=== PATIENT | male | born 1995 | race Caucasian/White ===

== ENCOUNTER → 2018-08-03 08:25 | Outpatient (CLI) | payer BC, SELFPAY ==
--- NOTE | 2018-08-03 08:28 | US_ITS ---
US scrotum HISTORY: ITS.REASON: Left testicular pain ORDERING PHYSICIAN: JASMINA Mullins PATIENT AGE: 23 years Comparison: None FINDINGS: RIGHT TESTICLE: The right testicle has an unremarkable appearance measuring 4 x 2 x 3 cm. No testicular mass, hydrocele, spermatocele, or varicocele evident. Blood flow is noted to the right testicle. LEFT TESTICLE: The left testicle has an unremarkable appearance measuring4.6 x 2 x 2.6 cm. No mass, hydrocele, spermatocele, or varicocele evident. Blood flow is noted to the left testicle. IMPRESSION: Normal scrotal ultrasound.
== END ==
LOC: RAD 08:27
PROVIDERS: PCP Physician Assistant; Visit Provider Physician Assistant
DX: K40.90 Unilateral inguinal hernia, without obstruction or gangrene, not specified as recurrent (principal); N50.819 Testicular pain, unspecified
CPT/HCPCS: 76870

== ENCOUNTER 2018-08-08 13:23 | Outpatient (CLI) | payer BC, SELFPAY ==
[2018-08-08 13:45] VITALS: BP 158/106; PULSE 67; RESP 20; TEMP 36.9; O2SAT 98
== END 2018-08-08 14:00 | disposition home or self-care (01) ==
LOC: INF 13:25
PROVIDERS: PCP Physician Assistant; Visit Provider Surgery
DX: N45.1 Epididymitis (principal)
CPT/HCPCS: 96372

== ENCOUNTER 2020-05-23 12:50 | Emergency (ER) | payer BC, SELFPAY ==
[2020-05-23 12:59] VITALS: BP 152/86; PULSE 93; RESP 18; TEMP 36.8; O2SAT 99; BMI 30.5
--- NOTE | 2020-05-23 13:18 | HMH.EDUTC ---
[facility] [place] Clinical Impression: Viral syndrome Pharyngitis Qualifiers: Pharyngitis/tonsillitis etiology: unspecified etiology Qualified Code(s): J02.9 - Acute pharyngitis, unspecified Disposition: Home, Self-Care Condition on Discharge: Good Instructions: Sore Throat, DI for Pharyngitis/Tonsillopharyngitis -- Adult Additional Instructions: Drink plenty of fluids. Take tylenol or ibuprofen for pain or fever. Take the medications as directed. Follow up with your regular doctor. GO TO THE ER FOR ANY WORSENING SYMPTOMS Prescriptions: Brompheniramine/Pseudoephed/Dm [Bromfed Dm Cough Syrup] 5 ml PO Q6HP PRN #240 syrup PRN Reason: Cough [facility] Ondansetron [Zofran 4mg ODT] 4 mg PO Q8HP PRN #20 tab.rapdis PRN Reason: Nausea Transmission Status: Received by [id number] Azithromycin [Z-Quinten 250mg Tab*] 250 mg PO UD DOSE PK #6 tab Transmission Status: [facility] Referrals: Dontae Patel MD [Primary Care Provider] - Forms: Work/School Release Time of Disposition: 13:21 Medical Decision Making - Medical Records Medical records reviewed: No: I reviewed the patient's medical records. - Laci Inquiry Pt receiving controlled substance: No Vital Signs: 05/23/20 12:59 05/23/20 13:38 Temperature 98.2 F 98.2 F Temperature Source Oral Oral Pulse Rate 93 H Pulse Rate [Radial] 93 H Respiratory Rate 18 18 Blood Pressure 152/86 H Blood Pressure [Right Arm] 152/86 H Blood Pressure Mean [Right Arm] 108 Blood Pressure Source Automatic Cuff Blood Pressure Source [Right Arm] Automatic Cuff Blood Pressure Position Sitting Blood Pressure Position [Right Arm] Sitting 02 Sat by Pulse Oximetry 99 Oxygen Delivery Method Room Air Room Air - Lab Data Lab results reviewed: Yes: I reviewed the patient's lab results. Orders (Tests/Meds): ORDERS Category Date Time Status Covid-19 Nasal PCR Sendout [facility] 05/23/20 13:10 Received [facility] [place] HPI - General Stated complaint: vomiting,sore throat,cold chills Time Seen by Provider: 05/23/20 13:18 Mode of Arrival: Ambulatory Source of Information: Patient Limitations: No Limitations Description of Symptoms (Recalled from Triage Doc. by RN): needs COVID test. vomiting, achy, fever HEENT Symptoms (Recalled from RN notes): Yes Resp Symptoms (Recalled from RN notes): No Skin Symptoms (Recalled from RN notes): No MS Symptoms (Recalled from RN notes): No Functional Status (Recalled from RN notes): wnl - History of Present Illness Provider Complaint: He states that for the past 2 days he has been having some chilling, worsening cough, and body aches. He thinks he might have the flu. He denies any known COVID-19 exposure. - Related Data Previous Rx's Medication Instructions Recorded Oseltamivir Phosphate [Tamiflu 75 mg PO DAILY #10 cap 10/08/19 75mg Capsule] hydrOXYzine HCL [Hydroxyzine HCl] 25 mg PO Q6HP PRN #30 tab 10/08/19 Azithromycin [Z-Quinten 250mg Tab*] 250 mg PO UD DOSE PK #6 tab 05/23/20 Brompheniramine/Pseudoephed/Dm 5 ml PO Q6HP PRN #240 syrup 05/23/20 [Bromfed Dm Cough Syrup] Ondansetron [Zofran 4mg ODT] 4 mg PO Q8HP PRN #20 tab.rapdis 05/23/20 Allergies Allergy/AdvReac Type Severity Reaction Status Date / Time No Known Allergies Allergy Verified 10/08/19 09:35 - Worker's Comp Is this a Worker's Comp case?: No [facility] History - Hepatitis A Screen Drug use history?: No High risk sexual behaviors?: No History of sexually transmitted infection?: No Currently employed?: No Childcare worker?: No Do you have indoor plumbing?: Yes Do you have electricity?: Yes Attestation statement:: This patient has been screened for Hepatitis A risk factors. I have reviewed the patient's past medical history: Yes Other Surgeries: Yes: No Previous Surgery Amputation: No Fractures: No - Social History Smoking Status: Smoker, status
[2020-05-23 13:38] VITALS: BP 152/86; PULSE 93; RESP 18; TEMP 36.8; O2SAT 99
[2020-05-24 18:10] LABS: Covid-19 Nasal PCR Sendout Lex NOT DETECTED
== END 2020-05-23 13:39 | disposition home or self-care (01) ==
PROVIDERS: Emergency Provider Nurse Practitioner Family; PCP Family Medicine
DX: B34.9 Viral infection, unspecified (principal); Z20.828 Contact with and (suspected) exposure to other viral communicable diseases; F17.290 Nicotine dependence, other tobacco product, uncomplicated
CPT/HCPCS: 99201; U0004

== ENCOUNTER 2021-09-17 20:36 | Emergency (ER) | payer BC, SELFPAY ==
[2021-09-17 21:16] VITALS: BP 151/112; PULSE 103; RESP 18; TEMP 37.3; O2SAT 96; BMI 31.1
--- NOTE | 2021-09-17 21:16 | HMH.EDUTC ---
[facility] [place] Dis[place] Clinical Impression: Viral syndrome Disposition: Home, Self-Care Condition on Discharge: Good Instructions: DI for Viral Syndrome, DI for COVID-19 (Suspected or Confirmed ), Preventing the Spread of Coronavirus Discharge Instructions Additional Instructions: Drink plenty of fluids. Take tylenol or ibuprofen for pain or fever. Take the medications as directed. Follow up with your regular doctor. GO TO THE ER FOR ANY WORSENING SYMPTOMS Quarantine until you know the results of your covid-19 test that you took at work. Notify your school or workplace of your results and follow their instructions regarding return to work/school. The cough medication (promethazine dm) will make you drowsy, so don't drive or operate heavy machinery after taking it. Prescriptions: Promethazine/Dextromethorphan [Promethazine-Dm Syrup] 5 ml PO Q6HP PRN #240 ml PRN Reason: Cough Transmission Status: Received by [facility] Ondansetron [Zofran 4mg ODT] 4 mg PO Q8HP PRN #20 tab PRN Reason: Nausea Transmission Status: Received by [facility] methylPREDNISolone [Medrol] 4 mg PO DIRECTED 6 Days #21 packet Transmission Status: Received by [facility] Azithromycin [Z-Uqinten 250mg Tab*] 250 mg PO UD DOSE PK #6 tab Transmission Status: Received by [facility] Referrals: Ana Sky PA [Primary Care Provider] - Forms: Work/School Release Time of Disposition: 22:25 Medical Decision Making - Medical Records Medical records reviewed: No: I reviewed the patient's medical records. - Laci Inquiry Pt receiving controlled substance: No Vital Signs: 09/17/21 21:16 09/17/21 21:42 Temperature 99.1 F 99.1 F Temperature Source Oral Pulse Rate 103 H Pulse Rate [Left] 103 H Respiratory Rate 18 18 Blood Pressure 151/112 H Blood Pressure [Right Arm] 151/112 H Blood Pressure Mean [Right Arm] 125 02 Sat by Pulse Oximetry 96 - Lab Data Lab results reviewed: Yes: I reviewed the patient's lab results. Lab Results 09/17/21 21:34: Influenza Type A Ag Negative, Influenza Type B Ag Negative Orders (Tests/Meds): ED MEDICATIONS Discontinued Medications Generic Name Dose Route Start Last Admin Trade Name Shawn PRN Reason Stop Dose Admin Ibuprofen 800 mg 09/17/21 22:24 09/17/21 22:27 Ibuprofen 400 Mg Tablet PO 09/17/21 22:25 800 mg ONCE ONE Administration [facility] [place] HPI - General Stated complaint: flu test Time Seen by Provider: 09/17/21 21:23 - History of Present Illness Provider Complaint: He has been feeling bad since last night. He has body aches, chest congestion, cough, nausea, chills and fever. He had a covid test done at his work today that he thinks was negative. He is here to be tested for influenza. He has been vaccinated against covid-19. - Related Data Previous Rx's Medication Instructions Recorded venlafaxine 75 mg capsule,extended 75 mg PO DAILY #30 cap 08/06/20 release 24 hr Azithromycin [Z-Quinten 250mg Tab*] 250 mg PO UD DOSE PK #6 tab 09/17/21 Ondansetron [Zofran 4mg ODT] 4 mg PO Q8HP PRN #20 tab 09/17/21 Promethazine/Dextromethorphan 5 ml PO Q6HP PRN #240 ml 09/17/21 [Promethazine-Dm Syrup] methylPREDNISolone [Medrol] 4 mg PO DIRECTED 6 Days #21 09/17/21 packet Allergies Allergy/AdvReac Type Severity Reaction Status Date / Time No Known Allergies Allergy Verified 08/06/20 10:11 [facility] History - Hepatitis A Screen Attestation statement:: This patient has been screened for Hepatitis A risk factors. I have reviewed the patient's past medical history: Yes Other Surgeries: Yes: No Previous Surgery Amputation: No Fractures: No - Social History Smoking Status: Smoker, status unknown Tobacco Type: cigars # Packs/Day (cigarettes): 1 Alcohol Intake: never Alcohol Intake Frequency:: a few times a week Substance Use Type: denies use Occupational Status: employed Family Hx
[2021-09-17 21:34] LABS: UTC Influenza A Antigen Negative (Negative); UTC Influenza B Antigen Negative (Negative)
[2021-09-17 21:42] VITALS: BP 151/112; PULSE 103; RESP 18; TEMP 37.3
== END 2021-09-17 22:30 | disposition home or self-care (01) ==
PROVIDERS: Emergency Provider Nurse Practitioner Family; PCP Physician Assistant
DX: B34.9 Viral infection, unspecified (principal); R50.9 Fever, unspecified; R05.1 Acute cough
CPT/HCPCS: 87804; 99202; G0463

== ENCOUNTER → 2021-10-20 23:16 | Outpatient (CLI) | payer BC, SELFPAY | PROVIDERS: PCP Physician Assistant; Visit Provider Emergency Medicine | DX: U07.1 COVID-19 (principal) | CPT/HCPCS: C9803; U0003; U0005 ==

== ENCOUNTER → 2022-01-01 06:03 | Outpatient (CLI) | payer BC, SELFPAY ==
--- NOTE | 2022-01-01 06:30 | CT_ITS ---
FINAL REPORT TECHNIQUE: Pre-and postcontrast images of the abdomen were performed by computed tomography. Extensive 3-D reconstruction images were performed. A CTA was performed. This study was performed with techniques to keep radiation doses as low as reasonably achievable (ALARA). Individualized dose reduction techniques using automated exposure control or adjustment of mA and/or kV according to the patient''s size were employed. CLINICAL HISTORY: malignant HTN FINDINGS: ABDOMEN: The lung bases are clear. Precontrast images demonstrate no evidence of nephrolithiasis. No adrenal masses are identified. The liver, spleen and pancreas are unremarkable. CTA: The abdominal aorta is proper caliber. The SMA, celiac axis, and ONOFRE are patent. There is no significant stenosis or calcification. The renal arteries are patent bilaterally. IMPRESSION: No evidence of renal vascular hypertension or significant renal artery stenosis. Reviewed, Interpreted and Dictated by Damian Moreno MD Transcribed by Marlene Irwin Authenticated by Damian Moreno MD on 01/01/2022 09:18:11 AM [facility]
== END ==
PROVIDERS: PCP Physician Assistant; Visit Provider Family Medicine
DX: I10 Essential (primary) hypertension (principal)
CPT/HCPCS: 74175; Q9967

== ENCOUNTER → 2022-03-13 10:25 | Outpatient (CLI) | payer BC, SELFPAY | PROVIDERS: PCP Physician Assistant; Visit Provider Urology | DX: Z01.812 Encounter for preprocedural laboratory examination (principal); Z20.822 Contact with and (suspected) exposure to COVID-19; Z30.2 Encounter for sterilization | CPT/HCPCS: C9803; U0003; U0005 ==

== ENCOUNTER 2022-03-15 07:25 | Day surgery (SDC) | payer BC, SELFPAY ==
[2022-03-15 07:34] VITALS: BP 151/90; PULSE 85; RESP 18; TEMP 36.7; O2SAT 97; BMI 29.8
--- NOTE | 2022-03-15 08:14 | P.PN_ITS ---
[facility] [place] Anesthesia Checklist - Structural Data Admitted From: Home Planned Operative Procedure/s: vasectomy Consent for Planned Operative Procedure(s) Verified: Yes - Additional verifications Anesthesia Reactions: No Hx Blood Transfusions: No Blood Transfusion Reaction: No - Airway Assessment C-Spine Mobility Assessed: Yes TMJ Mobility Assessed: Yes Dentition: Good Dentition - Neurological Assessment Level of Consciousness: Awake, Alert, Appropriate - Anesthesia Plan Anesthesia Risk discussed: Yes Anesthesia Plan: Verified ASA Class: II Anesthesia Type: MAC [facility] History I have reviewed the patient's past medical history: Yes Medical History: Reports:: Depression, Hypertension Denies:: Cancer, Diabetes Mellitus Type 1, Diabetes Mellitus Type 2, Internal Pacemaker, MRSA, Seizures *Have you ever received a pneumonia vaccine?: No *Have you received a flu vaccine this season?: No Other Medical History: Denies: Blood Transfusion Reaction Anesthesia experience/problems:: none Other Surgeries: Yes: No Previous Surgery. No: Pacemaker Amputation: No Fractures: No - *Social History Last grade of school completed: High school graduate Smoking Status: Current every day smoker Tobacco Type: e-cigarettes # Packs/Day (cigarettes): 1 Alcohol Intake: current Alcohol Intake Frequency:: a few times a week Substance Use Type: denies use *Occupational Status:: employed Housing: house *Travel in the last 8 weeks: None - Psychiatric History Pschychiatric History:: Reports:: Depression Family Hx:: Cancer, Diabetes
[2022-03-15 09:09] VITALS: BP 177/96; PULSE 95; RESP 18; TEMP 36.6; O2SAT 93
[2022-03-15 09:19] VITALS: BP 167/83; PULSE 87; RESP 18; O2SAT 95
[2022-03-15 09:29] VITALS: BP 165/78; PULSE 85; RESP 18; O2SAT 96
[2022-03-15 09:40] VITALS: BP 143/79; PULSE 85; RESP 18; O2SAT 96
--- NOTE | 2022-03-15 11:53 | P.OP_ITS ---
Date of procedure: 03/15/22 Pre-op Diagnosis:: Sterilization Post-op Diagnosis:: Sterilization Procedure performed:: Vasectomy Surgeon:: Smooth Carlson MD [employer]PINGS:: Other (dustin) Anesthesia: MAC Estimated blood loss (mL): 0 Clinical Note:: 27-year-old white male previously seen for vasectomy consultation presents for the procedure today. Preoperative scrotal and testicular examination within normal limits. Operative findings:: Scrotal and testicular examination within normal limits. Both vasa are easily palpable. Operative note:: Patient taken to the operating room after informed consent was obtained. Monitored anesthesia care was administered and he was prepped and draped in the standard surgical fashion. Preoperative IV antibiotics were administered. Scrotal and testicular examination within normal limits. Left vas was grasped between 2 fingers and brought anteriorly to the midline raphae. Local anesthetic was placed under the skin at the midline raphae and around the left vas. Incision was then made in the midline raphae and a tenaculum was used to grasp the vas and it was brought up through the incision. The basal sheath was incised and the vas proper was isolated from its surrounding adventitial and vascular tissue. 1 clip was placed distally and 2 clips proximally. A 1 cm segment was excised and basal lumen was cauterized. Hemostasis was achieved and the vas was dropped back into the left hemiscrotum. The right vas was then brought up through the same midline incision local anesthetic was placed around the vas. The basal sheath was incised and the vas proper was isolated from its surrounding adventitial tissue and clipped on each side. A 1 cm segment excised and the basal lumen was cauterized. Hemostasis achieved and the vas dropped back into the right hemiscrotum. 3-0 chromic in a horizontal mattress fashion was placed in the skin. Compression dressing applied. Patient tolerated procedure well no complications. Condition: stable Disposition: same day Specimens:: Vas segments were removed but not sent to pathology Complications:: None
== END 2022-03-15 09:45 | disposition home or self-care (01) ==
LOC: OR 07:27
PROVIDERS: PCP Physician Assistant; Visit Provider Urology
PROC: (CPT 55250; principal; 2022-03-15 08:15)
DX: Z30.2 Encounter for sterilization (principal); I10 Essential (primary) hypertension; F32.A Depression, unspecified; Z72.0 Tobacco use
CPT/HCPCS: 55250; 96374; J2405; J2505

== ENCOUNTER 2022-05-07 12:47 | Emergency (ER) | payer BC, SELFPAY ==
--- NOTE | 2022-05-07 13:12 | EXP.UTC ---
Discharge Plan Disposition Patient Disposition: Home, Self-Care Condition: Good Prescriptions Prescriptions: New Paxlovid (EUA) 300 mg (150 mg x 2)-100 mg tablets,dose pack See Rx Instructions .ROUTE .COMPLEX Qty: 30 0RF Rx Instructions: take TWO 150 mg tablets of nirmatrelvir with ONE 100 mg tablet of ritonavir twice daily for 5 days No Action buspirone 5 MG tablet 5 mg PO BID metoprolol succinate 25 MG tablet extended release 24 hr 25 mg PO DAILY cariprazine 1.5 MG capsule 1.5 mg PO DAILY Referrals Follow up/Referrals: Ana Sky PA [Primary Care Provider] - See instructions Activity Restrictions/Add. Instructions Additional Instructions/Restrictions: You have been tested for COVID19. Please isolate yourself as if you are positive until test results received. Current CDC guidelines are quarantine X 5 days from onset of symptoms, with an additional 5 days of mask wearing at all times. If you have difficulty breathing, signs of dehydration, etc please seek treatment at ER. Clinical Impressions Clinical Impression: Close exposure to 2019-nCoV Stand Alone Forms Stand Alone Forms: Work/School Release Discharge ED Provider: Ana Sky [facility] [place] HPI General Stated complaint: sore throat,body aches,cold sweats Time Seen by Provider: 05/07/22 13:12 History of Present Illness Provider Complaint: Cough, sore throat, headache, body aches, chills, fever since last night. Getting progressively worse. Multiple coworkers diagnosed with COVID19. Onset (ago): day(s) (1) Location: head and chest Radiation: non-radiation Severity: moderate Severity scale (1-10): 5 Consistency: constant Relieving factors: none Exacerbating factors: none Associated symptoms: cough, fever/chills and headaches Treatments prior to arrival: NSAID Related Data Home Medications Medication Instructions Recorded Confirmed buspirone 5 mg tablet 5 mg PO BID Anxiety 03/15/22 03/15/22 cariprazine 1.5 mg capsule 1.5 mg PO DAILY Anxiety 03/15/22 03/15/22 metoprolol succinate 25 mg 25 mg PO DAILY HTN 03/15/22 03/15/22 tablet,extended release 24 hr Previous Rx's Medication Instructions Recorded nirmatrelvir 300 mg (150 mg See Rx Instructions PO .COMPLEX 05/07/22 x2)-ritonavir 100 mg tablet,dose #30 tabs pack(EUA) (Paxlovid) Allergies Allergy/AdvReac Type Severity Reaction Status Date / Time No Known Allergies Allergy Verified 05/07/22 13:15 [facility] Medical History (Updated 05/07/22 @ 13:36 by JASMINA Kennedy) Anxiety Depression Social History Smoking Status: Current every day smoker tobacco type: e-cigarettes second hand exposure: No alcohol intake: current substance use type: denies use current occupational status: employed Travel in the last 8 weeks: None housing: house current occupation: production tm current occupational exposures/hazards: Yes caffeine: Yes ROS Obtained: Yes All systems reviewed & no additional complaints except as documented Constitutional Constitutional: Reports body ache, Reports chills, Reports fatigue, Reports fever(s), Reports headache(s) and Reports malaise ENT Ears, Nose, Mouth, and Throat: Reports headache(s), Reports nasal discharge, Reports sinus pain and Reports sore throat Respiratory Respiratory: Reports chest congestion and Reports cough Neurologic Neurologic: Reports headache(s) Endocrine Endocrine: Reports fatigue Physical Exam General General appearance: alert and in no apparent distress Head Head exam: atraumatic, normocephalic and normal inspection Eye Eye exam: Present normal appearance, PERRL and EOMI ENT ENT exam: Present normal exam, mucous membranes moist, TM's normal bilaterally and normal external ear exam Expanded ENT Exam Throat exam: Present tonsillar erythema Neck Neck exam: Present normal inspection, full ROM and trac
[2022-05-07 13:13] VITALS: BP 151/102; PULSE 90; RESP 18; TEMP 36.7; O2SAT 96; BMI 29.2
[2022-05-07 13:13] LABS: UTC Influenza A Antigen Negative (Negative)
[2022-05-07 13:14] LABS: UTC Influenza B Antigen Negative (Negative)
[2022-05-07 13:24] LABS: UTC Strep Screen (Rapid) Negative (Negative)
[2022-05-07 13:38] VITALS: BP 151/102; PULSE 90; RESP 18; TEMP 36.7
== END 2022-05-07 13:59 | disposition home or self-care (01) ==
PROVIDERS: Emergency Provider Physician Assistant; PCP Physician Assistant
DX: U07.1 COVID-19 (principal); J02.9 Acute pharyngitis, unspecified; M79.10 Myalgia, unspecified site; R05.9 Cough, unspecified; R53.82 Chronic fatigue, unspecified; F32.A Depression, unspecified; F41.9 Anxiety disorder, unspecified; F17.210 Nicotine dependence, cigarettes, uncomplicated; Z79.899 Other long term (current) drug therapy
CPT/HCPCS: 87804; 87880; 99213; C9803; G0463; U0003; U0005

== ENCOUNTER 2022-08-01 17:49 | Emergency (ER) | payer BC, SELFPAY ==
--- NOTE | 2022-08-01 18:03 | EXP.UTC ---
Discharge Plan Disposition Patient Disposition: Home, Self-Care Condition: Good Prescriptions Prescriptions: New ofloxacin 0.3 % drops See Rx Instructions .ROUTE .COMPLEX Qty: 5 0RF Rx Instructions: put 2 drps into affected eye every 4 h x 2 days, then 1 drp 4 times/day days 3-7 amoxicillin [amoxicillin] 500 mg tablet 500 mg PO TID 10 Days Qty: 30 0RF methylprednisolone 4 mg Tablets,Dose Pack 4 mg PO DIRECTED Qty: 21 0RF [id number] [Bromfed DM] 2-30-10 mg/5 mL Syrup 5 ml PO Q6H PRN (Reason: Cough) Qty: 240 0RF No Action Paxlovid (EUA) 300 mg (150 mg x 2)-100 mg tablets,dose pack See Rx Instructions .ROUTE .COMPLEX Qty: 30 0RF Rx Instructions: take TWO 150 mg tablets of nirmatrelvir with ONE 100 mg tablet of ritonavir twice daily for 5 days buspirone 5 MG tablet 5 mg PO BID metoprolol succinate 25 MG tablet extended release 24 hr 25 mg PO DAILY cariprazine 1.5 MG capsule 1.5 mg PO DAILY Referrals Follow up/Referrals: Ana Sky PA [Primary Care Provider] - See instructions Activity Restrictions/Add. Instructions Additional Instructions/Restrictions: Drink plenty of fluids. Take tylenol or ibuprofen for pain or fever. Take the medications as directed. Follow up with your regular doctor. GO TO THE ER FOR ANY WORSENING SYMPTOMS Use the eye drops as directed. Strict hand washing in the house hold, because conjunctivitis is very contagious. Follow up with your regular doctor. Clinical Impressions Clinical Impression: Conjunctivitis of left eye, Pharyngitis Stand Alone Forms Stand Alone Forms: Work/School Release Instructions Patient Instructions: How to Instill Eye Drops, DI for Strep Throat, DI for Conjunctivitis Discharge ED Provider: Yaw Almendarez [facility] [place] HPI General Stated complaint: COUGH, SORE THROAT, CONGESTION Time Seen by Provider: 08/01/22 18:01 History of Present Illness Provider Complaint: He c/o worsening sore throat for the past 2 days. He also woke up today with his left eye matted together with yellowish discharge. Both his sons currently have conjunctivitis Related Data Home Medications Medication Instructions Recorded Confirmed buspirone 5 mg tablet 5 mg PO BID Anxiety 03/15/22 03/15/22 cariprazine 1.5 mg capsule 1.5 mg PO DAILY Anxiety 03/15/22 03/15/22 metoprolol succinate 25 mg 25 mg PO DAILY HTN 03/15/22 03/15/22 tablet,extended release 24 hr Previous Rx's Medication Instructions Recorded nirmatrelvir 300 mg (150 mg See Rx Instructions PO .COMPLEX 05/07/22 x2)-ritonavir 100 mg tablet,dose #30 tabs pack(EUA) (Paxlovid) amoxicillin 500 mg tablet 500 mg PO TID 10 days #30 tabs 08/01/22 [id number] 5 ml PO Q6H PRN Cough #240 mL 08/01/22 2 mg-30 mg-10 mg/5 mL oral syrup (Bromfed DM) methylprednisolone 4 mg tablets in 4 mg PO DIRECTED #21 tabs 08/01/22 a dose pack ofloxacin 0.3 % eye drops See Rx Instructions ophthalmic 08/01/22 (eye) .COMPLEX #5 mL Allergies Allergy/AdvReac Type Severity Reaction Status Date / Time No Known Allergies Allergy Verified 08/01/22 18:34 [facility] Disclaimer: The information contained in this section may have been updated after the patient was seen, as this information can be updated by other users. Medical History Anxiety Depression Social History Smoking Status: Current every day smoker tobacco type: e-cigarettes second hand exposure: No alcohol intake: current substance use type: denies use current occupational status: employed Travel in the last 8 weeks: None housing: house current occupation: production tm current occupational exposures/hazards: Yes caffeine: Yes ROS Obtained: Yes All systems reviewed & no additional complaints except as documented
[2022-08-01 18:26] VITALS: BP 158/87; PULSE 89; RESP 16; TEMP 37.2; O2SAT 97; BMI 29.8
[2022-08-01 18:41] LABS: UTC Influenza A Antigen Negative (Negative); UTC Strep Screen (Rapid) Negative (Negative)
[2022-08-01 18:42] LABS: UTC Influenza B Antigen Negative (Negative)
[2022-08-01 19:15] VITALS: BP 158/87; PULSE 89; RESP 16; TEMP 37.2
== END 2022-08-01 19:19 | disposition home or self-care (01) ==
PROVIDERS: Emergency Provider Nurse Practitioner Family; PCP Physician Assistant
DX: J02.9 Acute pharyngitis, unspecified (principal); H10.9 Unspecified conjunctivitis
CPT/HCPCS: 87804; 87880; 99212; G0463

== ENCOUNTER 2024-02-24 22:39 | Emergency (ER) | payer BC, SELFPAY ==
--- NOTE | 2024-02-24 22:38 | ECG_ITS ---
APPROVED REPORT Exam: Resting ECG HR:86 bpm ECG Measurements Heart Rate 86 AXES SD 124 P 62 QRSd 96 QRS 60 QT 361 T 38 QTc 404 Conclusion SINUS RHYTHM NORMAL ECG UNCONFIRMED REPORT Electronically signed by : GAYATHRI WOODSON, 02/25/2024 06:49:34
[2024-02-24 22:39] VITALS: BP 177/116; PULSE 88; RESP 18; TEMP 36.8; O2SAT 100; BMI 29.2
[2024-02-24 22:45] VITALS: PULSE 88
--- NOTE | 2024-02-24 23:02 | HMH.EDGENADL ---
Discharge Plan Disposition Patient Disposition: Home, Self-Care Condition: Good Prescriptions Prescriptions: No Action Paxlovid 300 mg (150 mg x 2)-100 mg tablets,dose pack See Rx Instructions .ROUTE .COMPLEX Qty: 30 0RF Rx Instructions: take TWO 150 mg tablets of nirmatrelvir with ONE 100 mg tablet of ritonavir twice daily for 5 days ofloxacin 0.3 % drops See Rx Instructions .ROUTE .COMPLEX Qty: 5 0RF Rx Instructions: put 2 drps into affected eye every 4 h x 2 days, then 1 drp 4 times/day days 3-7 amoxicillin [amoxicillin] 500 mg tablet 500 mg PO TID 10 Days Qty: 30 0RF methylprednisolone 4 mg Tablets,Dose Pack 4 mg PO DIRECTED Qty: 21 0RF zpunfvzwcogegml-phklssjoq-PK [Bromfed DM] 2-30-10 mg/5 mL Syrup 5 ml PO Q6H PRN (Reason: Cough) Qty: 240 0RF buspirone 5 MG tablet 5 mg PO BID metoprolol succinate 25 MG tablet extended release 24 hr 25 mg PO DAILY cariprazine 1.5 MG capsule 1.5 mg PO DAILY Referrals Follow up/Referrals: Ana Sky PA [Primary Care Provider] - See instructions Activity Restrictions/Add. Instructions Additional Instructions/Restrictions: Please follow-up with your primary care provider and begin taking your blood pressure medications again. Please return to the emergency department if you develop any new or worsening symptoms or become concerned for your health. Clinical Impressions Clinical Impression: Asymptomatic hypertension Discharge ED Provider: Miguel Mcgee Adult HPI General Chief complaint: Chest Pain Stated complaint: CHEST PAIN Time Seen by Provider: 02/24/24 22:59 Mode of Arrival: Ambulatory Source of Information: Patient Limitations: No Limitations Description of Symptoms (Recalled from ER Triage Doc. by RN): Patient was at work when they performed a health check. Patient reports blood pressure was too high and they sent him home, and reported that they suggested he get an EKG. Patient states that he's had some left chest wall tenderness that has been going on all day, but he states that he did a chest workout yesterday and attribued the pain to that. Patient reports that he may have been started on HTN medications by Ana Sky several years ago, but he does not currently take this medication. History of Present Illness HPI narrative: 29-year-old male with history of hypertension, has been intermittently adherent to blood pressure medications for the last few years, not currently taking any, presents with hypertension. Reports that he got his blood pressure checked at his work earlier today and was sent home because it was too high. Is not sure what it was reading at that time. He denies any significant symptoms such as headache vision changes swelling or chest pain. He does report some muscular soreness in his back that started after lifting yesterday. Related Data Home Medications Medication Instructions Recorded Confirmed buspirone 5 mg tablet 5 mg PO BID Anxiety 03/15/22 03/15/22 cariprazine 1.5 mg capsule 1.5 mg PO DAILY Anxiety 03/15/22 03/15/22 metoprolol succinate 25 mg 25 mg PO DAILY HTN 03/15/22 03/15/22 tablet,extended release 24 hr Previous Rx's Medication Instructions Recorded nirmatrelvir 300 mg (150 mg See Rx Instructions PO .COMPLEX 05/07/22 x2)-ritonavir 100 mg tablet,dose #30 tabs pack (Paxlovid) amoxicillin 500 mg tablet 500 mg PO TID 10 days #30 tabs 08/01/22 nqckcktgismnuht-ozlpbirzvqvnduv-VL 5 ml PO Q6H PRN Cough #240 mL 08/01/22 2 mg-30 mg-10 mg/5 mL oral syrup (Bromfed DM) methylprednisolone 4 mg tablets in 4 mg PO DIRECTED #21 tabs 08/01/22 a dose pack ofloxacin 0.3 % eye drops See Rx Instructions ophthalmic 08/01/22 (eye) .COMPLEX #5 mL Allergies Allergy/AdvReac Type Severity Reaction Status Date / Time No Known Allergies Allergy Verified 08/01/22 18:34 [facility] Disclaimer: The information contained in this section may have been updated after the patient was seen, as this information can be updated by other users. 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[employer] current occupational exposures/hazards: Yes caffeine: Yes ROS Obtained: Yes All systems reviewed & no additional complaints except as documented Physical Exam General General appearance: alert and in no apparent distress Head Head exam: atraumatic and normocephalic Eye Eye exam: Present normal appearance, PERRL and EOMI ENT ENT exam: Present normal oropharynx and normal external ear exam Neck Neck exam: Present normal inspection and full ROM Chest Chest inspection: Present normal inspection and symmetric chest wall rise; Absent tenderness Respiratory Respiratory exam: Present normal lung sounds bilaterally; Absent respiratory distress Cardiovascular Cardiovascular exam: Present regular rate and normal rhythm Abdominal Exam Abdominal exam: Present soft; Absent distention, tenderness or guarding Extremities Exam Extremities exam: Present normal inspection; Absent edema or joint swelling Back Exam Back exam: Present normal inspection; Absent tenderness Neurological Exam Neurological exam: Present alert and oriented X3; Absent motor sensory deficit Psychiatric Psychiatric exam: Present normal affect and normal mood Skin Skin exam: Present warm, dry and normal color Lymphatic Lymphatic Findings: no adenopathy Medical Decision Making Medical Records Medical records reviewed: Yes I reviewed the patient's medical records. Laci Inquiry Pt receiving controlled substance: No Laci was queried for this patient: No Vital Signs: 02/24/24 22:39 02/24/24 22:45 02/24/24 23:14 Temperature 98.2 F 98.2 F Temperature Source Oral Oral Pulse Rate 88 80 Pulse Rate [Left Radial] 88 Respiratory Rate 18 22 Blood Pressure 163/111 H Blood Pressure [Right Arm] 177/116 H Blood Pressure Mean [Right Arm] 136 Blood Pressure Source Automatic Cuff Blood Pressure Position Sitting 02 Sat by Pulse Oximetry 100 Oxygen Delivery Method Room Air Room Air Lab Data Lab results reviewed: Yes I reviewed the patient's lab results. ECG Data Tracing #1: I reviewed this ECG and interpreted as documented below: ECG initial impression date: 02/24/24 ECG initial impression time: 23:02 ECG normal with no acute: arrhythmias, ischemia, conduction abnormalities, chamber hypertrophy Medical Decision Narrative: 29-year-old male with history of untreated hypertension presents with hypertension without any other significant symptoms.. History was obtained interactive discussion with patient. On arrival, patient is afebrile, hypertensive with systolics in the 170s, alert and oriented x 4, GCS 15, moving all extremities spontaneously. Full physical exam performed and significant for no significant physical exam abnormalities Differential includes but is not limited to hypertensive emergency, hypertensive urgency, asymptomatic hypertension. EKG independently interpreted by me and significant for normal sinus rhythm as documented above. Aspirin, chest x-ray, blood work, heart score was considered, but deemed unnecessary as patient is not having chest pain or other symptoms associated with hypertensive emergency. Given patient history, exam and workup, patient's presentation most likely represents asymptomatic hypertension. Interactive discussion with the patient regarding the acute and chronic treatment of hypertension, he was encouraged to follow-up with his PCP for further assessment. Return precautions given. Procedures Risk/Benefits of Procedure(s) Were Explained: Yes Critical Care Critical Care Time Critical Care Time: No
[2024-02-24 23:14] VITALS: BP 163/111; PULSE 80; RESP 22; TEMP 36.8; O2SAT 96
== END 2024-02-24 23:15 | disposition home or self-care (01) ==
PROVIDERS: Emergency Provider Emergency Medicine; PCP Physician Assistant
DX: M54.9 Dorsalgia, unspecified (principal); I10 Essential (primary) hypertension; F17.290 Nicotine dependence, other tobacco product, uncomplicated
CPT/HCPCS: 93005; 99283

== ENCOUNTER 2024-03-10 11:39 | Emergency (ER) | payer BC, SELFPAY ==
[2024-03-10 11:55] VITALS: BP 154/92; PULSE 83; RESP 18; TEMP 36.6; O2SAT 98; BMI 29.2
--- NOTE | 2024-03-10 12:00 | XR_ITS ---
PROCEDURE INFORMATION: Exam: XR Left Ankle Exam date and time: 03/10/2024 11:59 AM Age: 29 years old Clinical indication: Pain; Ankle; Left TECHNIQUE: Imaging protocol: Radiologic exam of the left ankle. Views: 3 or more views. COMPARISON: CR Foot L 03/10/2024 11:57 AM FINDINGS: Bones/joints: Normal. Soft tissues: Mild soft tissue swelling. IMPRESSION: No evidence of acute osseous injury.
--- NOTE | 2024-03-10 12:00 | XR_ITS ---
PROCEDURE INFORMATION: Exam: XR Left Foot Exam date and time: 03/10/2024 11:57 AM Age: 29 years old Clinical indication: Pain; Foot; Left TECHNIQUE: Imaging protocol: Radiologic exam of the left foot. Views: 3 or more views. COMPARISON: No relevant prior studies available. FINDINGS: Bones/joints: Normal. Soft tissues: Normal. IMPRESSION: No acute findings.
--- NOTE | 2024-03-10 12:00 | XR_ITS ---
PROCEDURE INFORMATION: Exam: XR Left Tibia and Fibula Exam date and time: 03/10/2024 11:59 AM Age: 29 years old Clinical indication: Pain; Lower leg; Left TECHNIQUE: Imaging protocol: Radiologic exam of the left tibia and fibula. Views: 2 views. COMPARISON: CR Ankle L 03/10/2024 11:59 AM FINDINGS: Bones/joints: Normal. Soft tissues: Normal. IMPRESSION: No acute findings.
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
[2024-03-10 13:32] VITALS: BP 154/92; PULSE 83; RESP 18; TEMP 36.6; O2SAT 98
== END 2024-03-10 13:38 | disposition home or self-care (01) ==
PROVIDERS: Emergency Provider Nurse Practitioner Family; PCP Physician Assistant
DX: S93.402A Sprain of unspecified ligament of left ankle, initial encounter (principal); M25.572 Pain in left ankle and joints of left foot; M79.662 Pain in left lower leg; V86.59XA Driver of other special all-terrain or other off-road motor vehicle injured in nontraffic accident, initial encounter
CPT/HCPCS: 73590; 73610; 73630; 99212; 99213; G0463

== ENCOUNTER 2025-01-17 07:59 | Outpatient (CLI) | payer BC, SELFPAY ==
--- NOTE | 2025-01-17 08:02 | US_ITS ---
FINAL REPORT CLINICAL HISTORY: ELEVATED TRANSAMINANE LEVELS COMPARISON: None FINDINGS: Sonographic images of the right upper quadrant were obtained. The pancreas is mostly obscured.The liver has an unremarkable appearance.The gallbladder appears normal without evidence of gallstones.There is no evidence of biliary ductal dilatation.The common duct measures 4mm. Limited images of the right kidney demonstrate a hypoechoic 1.6 cm left renal cyst. IMPRESSION: No evidence of gallstones or biliary ductal dilatation. A hypoechoic 1.6 cm left renal cyst is present. Reviewed, Interpreted and Dictated by Heather Elias MD Transcribed by Rosario Barraza Authenticated and . [facility]
== END 2025-01-17 23:59 | disposition home or self-care (01) ==
PROVIDERS: PCP Physician Assistant; Visit Provider Physician Assistant
DX: N28.1 Cyst of kidney, acquired (principal); R74.01 Elevation of levels of liver transaminase levels
CPT/HCPCS: 76705

== ENCOUNTER 2025-02-04 15:36 | Outpatient (CLI) | payer BC, SELFPAY ==
[2025-02-04 15:11] LABS: Microscopic, Urine URINE MICROSCOPIC (MICROSCOPIC)
[2025-02-04 15:41] LABS: Appearance,Urine CLEAR (Clear); Bilirubin,Urine Negative (Negative); Blood, Urine TRACE-L (Negative); Color,Urine YELLOW (Yellow); Glucose,Urine (UA) Negative (Negative); Ketones,Urine Negative (Negative); Leukocyte Esterase,Urine Negative (Negative); Nitrate,Urine Negative (Negative); Protein,Urine Negative (Negative); Specific Gravity, Urine 1.025 (1.005-1.030); Urobilinogen,Urine 0.2 EU/dl (0.2)
--- OUTSIDE RECORDS SUMMARY | 2025-02-04 15:50 | XMS_ITS | Clinical Summary ---
Author Organization [facility] Address [address] [place] [id number] Phone [email or web address] Care Team Providers Care Worm Sorter Name Role Phone Unavailable Primary Care Provider Unavailabl e Allergies No known active allergies Medications FLUoxetine (PROzac) 20 MG tablet Take 20 mg by mouth 1 (one) time each day. Active venlafaxine XR (EFFEXOR-XR) 75 MG 24 hr capsule Take 75 mg by mouth 1 (one) time each day. 08/06/2020 Active Active Problems Problem Noted Date Diagnosed Date Diarrhea of infectious origin 03/25/2021 Encounter for screening for COVID-19 09/11/2018 Testicular pain 07/04/2018 Family History Medical History Relation Name Comments Cancer Father Diabetes Father Diabetes Mother Relation Name Status Comments Father Mother Social History Tobacco Use Types Packs/Day Years Used Date Smoking Tobacco: Some Days Cigars Smokeless Tobacco: Never Intimate Partner Violence Answer Date R ecorded Insults You Not on file 12/10/2020 Threatens You Not on file 12/10/2020 Screams at You Not on file 12/10/2020 Physically Hurt Not on file 12/10/2020 Intimate Partner Violence Score Not on file 12/10/2020 Stress Answer Date Recorded Stress in your Life Not on file 07/02/2024 Dealing with Stress 3 07/02/2024 Sex and Gender Information Value Date Recorded Sex Assigned at Not on file Legal Sex Male 9:12 AM CDT Gender Identity Not on file Sexual Orientation Not on file Last Filed Vital Signs Vital Sign Reading Time Taken Comments Blood Pressure 135/98 09/11/2018 4:56 PM EST Pulse 95 08/04/2021 7:11 PM EST Temperature 36.4 C (97.6 F) 12/11/2021 11:20 PM EDT Respiratory Rate 14 09/11/2018 4:56 PM EST Oxygen Saturation 98% 12/11/2021 11:20 PM EDT Inhaled Oxygen Concentration - - Weight 94.4 kg (208 lb 3.2 oz) 07/03/2018 8:12 P M EST Height 182.9 cm (6') 07/03/2018 8:12 PM EST Body Mass Index 28.24 07/03/2018 8:12 PM EST Plan of Treatment Health Maintenance Due Date Last Done Comments Dental Cleaning/Exam 1993 HIV Screening 1993 Hepatitis C Screening 1993 Polio Immunization (2 of 3 - 4-dose series) 05/07/1997 04/09/1997 Annual Preventive Exam 2011 Hep B Infection Screening - Triple Screen 2011 Hepatitis B Immunization (1 of 3 - 19+ 3-dose series) 01/07/2012 Pneumococcal: Ped (0 to 5 Yrs) and At-Risk Member (6 to 64 Yrs) (1 of 2 - PCV) 01/07/2012 Tetanus Diphtheria and Pertussis Immunization (4 - Td or Tdap) 11/24/2020 11/24/2010, 02/21/2004, 04/09/1997 Covid-19 Immunization ( - season) 2024 Influenza Immunization (Season Ended) 2025 Varicella Immunization Completed 7, 06/26/1996 HIB Immunization Aged Out No longer e ligible based on patient's age to complete this topic HPV Immunization Aged Out No longer e ligible based on patient's age to complete this topic Hepatitis A Immunization Aged Out No longer eligible based on patient's age to complete this topic Insurance ANTH IN [employer] 5 [id number] [place] [id number]
--- OUTSIDE RECORDS SUMMARY | 2025-02-04 15:50 | XMS_ITS | Encounter Summary ---
Author Organization [facility] Address [address] [place] [id number] Phone [email or web address] Care Team Providers Care Nutritional Services Cook Name Role Phone Unavailable Primary Care Provider Unavailabl e Encounter Details Date Type Department Care Team ([facility] Contact Info) Description 07/11/2018 Ancillary Orders [place] [id number] [facility] [address] [place] [address] Luis M Gamboa Jr., MD [address] [place] [address] Testicular pain Social History Tobacco Use Types Packs/Day Years Used Date Smoking Tobacco: Every Day Cigars Smokeless Tobacco: Never Sex and Gender Information Value Date Recorded Sex Assigned at Not on file Legal Sex Male 9:12 AM CDT Gender Identity Not on file Sexual Orientation Not on file documented as of this encounter Plan of Treatment Not on file documented as of this encounter Visit Diagnoses Diagnosis Testicular pain Unspecified disorder of male genital organs documented in this encounter
== END 2025-02-04 23:59 | disposition home or self-care (01) ==
LOC: LAB.DROPOF 15:36
PROVIDERS: PCP Urology; Visit Provider Urology
DX: R68.82 Decreased libido (principal); R53.83 Other fatigue
CPT/HCPCS: 81001